=== PATIENT | male | born 1980 | race Caucasian/White ===

== ENCOUNTER 2025-03-15 18:58 | Emergency (ER) | payer OTHER ==
[~2025-03-15] VITALS: Ht 175.3 cm; Wt 73.0 kg
[2025-03-15 19:06] VITALS: TEMP 36.6; O2SAT 98
[2025-03-15] MEDS: LACTATED RINGERS 1,000 ML IV STA (22:32)
[2025-03-15] MEDS: TETRACAINE 0.5% OPHTH DROPS 4ML BOTHEYE ONE (22:32)
[2025-03-16] MEDS ORDERED: PRED5DRO22 LEFTEYE (00:39)
[2025-03-16] MEDS ORDERED: BRIM1DRO LEFTEYE (00:39)
[2025-03-16] MEDS ORDERED: CIPR2.5D20 LEFTEYE (00:39)
[2025-03-16 01:45] VITALS: BP 147/100; PULSE 59; RESP 15; O2SAT 100
== END 2025-03-16 01:48 | disposition home or self-care (01) ==
LOC: ER 18:58
DX: H10.212 Acute toxic conjunctivitis, left eye (principal); Z98.890 Other specified postprocedural states
CPT/HCPCS: 99284; J7120